=== PATIENT | male | born 1940 | race Caucasian/White ===

== ENCOUNTER → 2021-04-06 | Outpatient (CLI) | payer MEDICARE, OTHER ==
[~2021-04-06] MED LIST: ATEN50; CARV25 PO; HYDACE5325 PO; LEVSOD175; METF500 PO; OXYACE5T PO; PROM25 PO; SUMA25; TAMS.4ER
[2021-04-06 15:16] LABS: Appearance, Urine Clear (Clear); Bilirubin, Urine Neg (Neg); Blood, Urine 3+ (Neg); Color, Urine Yellow (P-Yellow); Glucose Qualitative, Urine 4+ (Neg); Ketones, Urine Neg (Neg); Leukocyte Esterase, Urine Neg (Neg); Nitrite, Urine Neg (Neg); Protein, Urine Neg (Neg); Urobilinogen, Urine NORM (Normal)
[2021-04-06 15:33] LABS: White Blood Cells, Urine 0-2 /hpf (0-5)
[2021-04-06 15:34] LABS: Bacteria Few /hpf; Squamous Epithelial Cells Rare /hpf (Few)
== END | disposition home or self-care (01) ==
LOC: LAB SHORT 14:27 → LAB 14:27
PROVIDERS: Radiology Therapeutic Radiology
DX: Z51.0 Encounter for antineoplastic radiation therapy (principal); C61 Malignant neoplasm of prostate
CPT/HCPCS: 81001

== ENCOUNTER 2021-12-24 13:25 | Emergency (ER) | payer MEDICARE, OTHER ==
[~2021-12-24] VITALS: Ht 162.6 cm; Wt 60.8 kg
[2021-12-24] MEDS ORDERED: EUTHYROX100 MC1 PO (14:00)
[2021-12-24] MEDS ORDERED: HYDR1TAB94 PO (15:38)
[2021-12-24] MEDS ORDERED: CEPH500 PO (15:38)
== END 2021-12-24 15:40 | disposition home or self-care (01) ==
LOC: ER 13:25
DX: S62.630B Displaced fracture of distal phalanx of right index finger, initial encounter for open fracture (principal); S60.412A Abrasion of right middle finger, initial encounter; S60.414A Abrasion of right ring finger, initial encounter; W31.1XXA Contact with metalworking machines, initial encounter; Y92.9 Unspecified place or not applicable; Z87.891 Personal history of nicotine dependence; Z88.5 Allergy status to narcotic agent; Z79.899 Other long term (current) drug therapy
CPT/HCPCS: 73140; A9270

== ENCOUNTER 2022-04-02 13:02 | Day surgery (SDC) | payer MEDICARE, OTHER ==
[~2022-04-02] VITALS: Ht 165.1 cm; Wt 65.1 kg
[~2022-04-02 13:02] MED LIST changes: +CEPH500 PO; +EUTHYROX100 MC1 PO; +HYDR1TAB94 PO
[2022-04-02] MEDS ORDERED: METF500 (13:15)
[2022-04-02] MEDS ORDERED: NAPR220 (13:15)
== END 2022-04-02 15:00 | disposition home or self-care (01) ==
LOC: ORSCSDS 13:02
PROVIDERS: Anesthesiology
PROC: 3E0R33Z Introduction of Anti-inflammatory into Spinal Canal, Percutaneous Approach (ICD-10-PCS; principal; 2022-04-02 15:00)
DX: M51.16 Intervertebral disc disorders with radiculopathy, lumbar region (principal); M54.50 Low back pain, unspecified; I10 Essential (primary) hypertension; E03.9 Hypothyroidism, unspecified; Z85.46 Personal history of malignant neoplasm of prostate; Z79.899 Other long term (current) drug therapy
CPT/HCPCS: 82947; J1040

== ENCOUNTER 2022-04-24 08:58 | Day surgery (SDC) | payer MEDICARE, OTHER ==
[~2022-04-24] VITALS: Ht 165.1 cm; Wt 65.4 kg
[~2022-04-24 08:58] MED LIST changes: +METF500; +NAPR220
--- NOTE | 2022-04-24 10:07 | NUR ---
04/24/22 Shirley Benz CALL LIGHT WITHIN REACH.
== END 2022-04-24 11:10 | disposition home or self-care (01) ==
LOC: ORSCSDS 08:58
PROVIDERS: Anesthesiology
PROC: 3E0R33Z Introduction of Anti-inflammatory into Spinal Canal, Percutaneous Approach (ICD-10-PCS; principal; 2022-04-24 10:00)
DX: M51.16 Intervertebral disc disorders with radiculopathy, lumbar region (principal); I10 Essential (primary) hypertension; E03.9 Hypothyroidism, unspecified; Z85.46 Personal history of malignant neoplasm of prostate; Z79.899 Other long term (current) drug therapy
CPT/HCPCS: 82947; J1040

== ENCOUNTER 2022-08-09 09:48 | Day surgery (SDC) | payer MEDICARE, OTHER ==
[~2022-08-09] VITALS: Ht 165.1 cm; Wt 66.0 kg
[2022-08-09] MEDS ORDERED: AIMOVIG AU140 MG/1 M (10:41)
[2022-08-09] MEDS ORDERED: CARV3.125 (10:41)
[2022-08-09] MEDS ORDERED: COSOPT PF EYE1 EACH (10:42)
[2022-08-09] MEDS ORDERED: IBUP100S (10:42)
[2022-08-09] MEDS ORDERED: XALATAN2.5 ML (10:42)
[2022-08-09] MEDS ORDERED: TRELSTAR (10:43)
[2022-08-09] MEDS ORDERED: EUTHYROX88 MCG (10:43)
[2022-08-09] MEDS ORDERED: METF500 (10:43)
== END 2022-08-09 11:37 | disposition home or self-care (01) ==
LOC: ORSCSDS 09:48
PROVIDERS: Anesthesiology
PROC: 3E0R3BZ Introduction of Anesthetic Agent into Spinal Canal, Percutaneous Approach (ICD-10-PCS; principal; 2022-08-09 10:45)
PROC: 3E0R33Z Introduction of Anti-inflammatory into Spinal Canal, Percutaneous Approach (ICD-10-PCS; principal; 2022-08-09 10:45)
DX: M51.16 Intervertebral disc disorders with radiculopathy, lumbar region (principal); E11.9 Type 2 diabetes mellitus without complications; I10 Essential (primary) hypertension; Z79.899 Other long term (current) drug therapy; Z85.46 Personal history of malignant neoplasm of prostate
CPT/HCPCS: 82947; J1040; J2001

== ENCOUNTER 2023-03-27 19:38 | Emergency (ER) | payer MEDICARE, OTHER ==
[~2023-03-27] VITALS: Ht 167.6 cm; Wt 63.5 kg
[~2023-03-27 19:38] MED LIST changes: +AIMOVIG AU140 MG/1 M; +CARV3.125; +COSOPT PF EYE1 EACH; +EUTHYROX88 MCG; +IBUP100S; +TRELSTAR; +XALATAN2.5 ML
[2023-03-27 20:15] LABS: BASOPHILS ABSOLUTE AUTO 0.05 K/mm3 (0.00-0.23); BASOPHILS PERCENT AUTO 0 % (0-2); EOSINOPHILS ABSOLUTE AUTO 0.12 K/mm3 (0.00-0.68); EOSINOPHILS PERCENT AUTO 1 % (0-6); Hematocrit 44.5 % (37.0-53.0); Hemoglobin 15.4 g/dL (13.5-17.5); IMMATURE GRAN ABSOLUTE AUTO 0.05 K/mm3 (0.00-0.10); IMMATURE GRAN PERCENT AUTO 0 % (0-1); LYMPHOCYTES ABSOLUTE AUTO 1.86 K/mm3 (0.84-5.20); LYMPHOCYTES PERCENT AUTO 14 % (21-46); MONOCYTES ABSOLUTE AUTO 0.86 K/mm3 (0.16-1.47); MONOCYTES PERCENT AUTO 7 % (4-13); Mean Corpuscular HGB 31.2 pg (26.0-34.0); Mean Corpuscular HGB Conc 34.6 g/dL (31.5-36.5); Mean Corpuscular Volume 90 fL (80-100); Mean Platelet Volume 10.8 fL (9.1-12.4); NEUTROPHILS ABSOLUTE AUTO 10.09 K/mm3 (1.96-9.15); NEUTROPHILS PERCENT AUTO 77 % (41-73); Platelet Count 249 K/mm3 (150-400); RDW Standard Deviation 46.6 fL (35.1-46.3); Red Blood Cell Count 4.93 M/mm3 (4.30-5.90); White Blood Cell Count 13.03 K/mm3 (4.00-11.30)
[2023-03-27 20:20] LABS: Source, Urine Clean Catch
[2023-03-27 20:32] LABS: Albumin, Blood 3.8 g/dL (3.4-5.0); Albumin/Globulin Ratio 1.2 (0.8-1.8); Bilirubin, Total 1.1 mg/dL (0.1-1.0); Bun/Creatinine Ratio 31.4 (12.0-20.0); Calcium, Blood 9.3 mg/dL (8.5-10.1); Creatinine, Blood 1.4 mg/dL (0.60-1.20); Globulin, Blood 3.2 g/dL (2.2-4.0); Potassium, Blood 5.7 mmol/L (3.5-5.5)
[2023-03-27 20:35] LABS: Appearance, Urine Clear (Clear); Bilirubin, Urine Neg (Neg); Blood, Urine Neg (Neg); Color, Urine Yellow (P-Yellow); Glucose Qualitative, Urine Neg (Neg); Ketones, Urine Neg (Neg); Leukocyte Esterase, Urine Neg (Neg); Nitrite, Urine Neg (Neg); Protein, Urine 1+ (Neg); Specific Gravity, Urine 1.015 (1.003-1.022); Urobilinogen, Urine NORM (Normal)
[2023-03-27 23:00] VITALS: BP 193/83
== END 2023-03-27 23:06 | disposition home or self-care (01) ==
LOC: ER 19:38
PROVIDERS: Student in an Organized Health Care Education/Training Program
DX: R41.3 Other amnesia (principal); E86.0 Dehydration; E03.9 Hypothyroidism, unspecified; I10 Essential (primary) hypertension; Z88.5 Allergy status to narcotic agent; Z88.8 Allergy status to other drugs, medicaments and biological substances; Z79.890 Hormone replacement therapy; Z79.899 Other long term (current) drug therapy; Z79.84 Long term (current) use of oral hypoglycemic drugs; Z87.891 Personal history of nicotine dependence
CPT/HCPCS: 70450; 80053; 85025; 93005; 93010; 99285-25; J7030

== ENCOUNTER → 2024-12-22 | Outpatient (CLI) | payer MEDICARE, OTHER | LOC: LAB SHORT 10:10 → LAB 10:10 | DX: L08.9 Local infection of the skin and subcutaneous tissue, unspecified (principal); L57.8 Other skin changes due to chronic exposure to nonionizing radiation; Z48.02 Encounter for removal of sutures; Z71.89 Other specified counseling | CPT/HCPCS: 87070; 87077; 87147; 87186; 87205 ==

== ENCOUNTER 2025-06-08 10:59 | Emergency (ER) | payer MEDICARE, OTHER ==
[~2025-06-08] VITALS: Ht 165.1 cm; Wt 59.9 kg
[2025-06-08] MEDS ORDERED: VENL75ER (11:14)
[2025-06-08] MEDS ORDERED: DUTA.5 (11:15)
[2025-06-08] MEDS ORDERED: DOXY100 (11:15)
[2025-06-08 11:27] LABS: BASOPHILS ABSOLUTE AUTO 0.07 K/mm3 (0.00-0.23); BASOPHILS PERCENT AUTO 1 % (0-2); EOSINOPHILS ABSOLUTE AUTO 0.06 K/mm3 (0.00-0.68); EOSINOPHILS PERCENT AUTO 1 % (0-6); Hematocrit 44.6 % (37.0-53.0); Hemoglobin 15.4 g/dL (13.5-17.5); IMMATURE GRAN ABSOLUTE AUTO 0.05 K/mm3 (0.00-0.10); IMMATURE GRAN PERCENT AUTO 1 % (0-1); LYMPHOCYTES ABSOLUTE AUTO 1.85 K/mm3 (0.84-5.20); LYMPHOCYTES PERCENT AUTO 19 % (21-46); MONOCYTES ABSOLUTE AUTO 1.03 K/mm3 (0.16-1.47); MONOCYTES PERCENT AUTO 11 % (4-13); Mean Corpuscular HGB Conc 34.5 g/dL (31.5-36.5); Mean Corpuscular Volume 90 fL (80-100); NEUTROPHILS ABSOLUTE AUTO 6.62 K/mm3 (1.96-9.15); NEUTROPHILS PERCENT AUTO 69 % (41-73); NRBC ABSOLUTE 0.00 K/mm3 (0.00-0.02); NRBC Auto 0.0 /100 WBC (0.0-0.2); Platelet Count 247 K/mm3 (150-400); RDW Coefficient Variation 13.9 % (11.7-14.2); RDW Standard Deviation 46.2 fL (35.1-46.3)
[2025-06-08 11:45] LABS: Alanine Aminotransfer (ALT/SGP 42.0 U/L (12-78); Albumin, Blood 4.0 g/dL (3.4-5.0); Albumin/Globulin Ratio 1.3 (0.8-1.8); Anion Gap 8.0 mmol/L (3-11); Aspartate Aminotrans (AST/SGOT 32.0 U/L (12-37); Bilirubin, Total 0.8 mg/dL (0.1-1.0); Blood Urea Nitrogen 43.0 mg/dL (8-24); CO2, Blood 26.0 mmol/L (21-32); Calcium, Blood 9.1 mg/dL (8.5-10.1); Chloride, Blood 107.0 mmol/L (98-108); Creatinine, Blood 1.34 mg/dL (0.60-1.20); Globulin, Blood 3.1 g/dL (2.2-4.0); Glucose, Blood 107.0 mg/dL (70-99); Potassium, Blood 4.3 mmol/L (3.5-5.5); Sodium, Blood 137.0 mmol/L (136-145); Total Protein, Blood 7.1 g/dL (6.4-8.2)
[2025-06-08 14:11] LABS: Source, Urine Clean Catch
[2025-06-08 14:17] LABS: Bilirubin, Urine Neg (Neg); Color, Urine Yellow (P-Yellow); Glucose Qualitative, Urine Neg (Neg); Ketones, Urine Neg (Neg); Leukocyte Esterase, Urine Neg (Neg); Protein, Urine 1+ (Neg); Specific Gravity, Urine 1.025 (1.003-1.022); Urobilinogen, Urine NORM (Normal)
[2025-06-08 14:45] VITALS: BP 163/100
== END 2025-06-08 15:00 | disposition home or self-care (01) ==
LOC: ER 10:59
PROVIDERS: Student in an Organized Health Care Education/Training Program
DX: R41.0 Disorientation, unspecified (principal); Z87.891 Personal history of nicotine dependence; Z79.890 Hormone replacement therapy; Z79.899 Other long term (current) drug therapy
CPT/HCPCS: 70450; 80053; 85025; 93005; 93010; 99285-25

== ENCOUNTER 2025-06-22 09:43 | Day surgery (SDC) | payer MEDICARE, OTHER ==
[~2025-06-22] VITALS: Ht 165.1 cm; Wt 57.6 kg
[~2025-06-22 09:43] MED LIST changes: +Balanced Salt Epinephrine Irrigation Solution 500 mL IR SCH; +DOXY100; +DUTA.5; +Moxifloxacin HCL 0.5 MG/0.1 ML 0.4MLSYR RIGHTEYE SCH; +Ondansetron 4 MG SoluTab MM PRN; +PHENYLEPHRINE\\TROPICAMIDE\\TETRACAINE OPHTHALMIC DILATING SOLN RIGHTEYE PRN; +Povidone-Iodine 450 DROP/30 ML Solution ONE; +Povidone-Iodine 450 DROP/30 ML Solution RIGHTEYE SCH; +Tetracaine HCl/Pf 0.5% Opth Soln 4 ml ONE; +VENL75ER; +diazePAM 5 MG,diazePAM 2 MG PO SCH
--- NOTE | 2025-06-22 10:08 | NUR ---
06/22/25 1008 Lou Dawson 1002: 7 MG PO VALIUM PER ORDERS. INITIAL ANXIETY 09/21 PER PATIENT REPORT. 1004: TETRACAINE PER ORDERS 1005: PLEGET PER ORDERS
[2025-06-22] MEDS ORDERED: CARVEDILOL25 M9 PO (10:12)
[2025-06-22] MEDS ORDERED: DUTASTERIDE0.5 M3 PO (10:14)
[2025-06-22] MEDS ORDERED: SYNTHROID125 MC1 PO (10:15)
[2025-06-22] MEDS ORDERED: HYDROCODONE-AC1 EAC7 (10:16)
[2025-06-22] MEDS ORDERED: ESCI10 (10:17)
--- NOTE | 2025-06-22 10:39 | NUR ---
06/22/25 1039 Jaja Noel VITALS AT 1039 BP: 155/88 P: 61 O2: 100% WITH 10 LITERS OF BLOW BY OXYGEN
[2025-06-22 11:07] VITALS: BP 180/94
== END 2025-06-22 11:21 | disposition home or self-care (01) ==
LOC: ORSCSDS 09:43
PROVIDERS: Student in an Organized Health Care Education/Training Program
PROC: 08RJ3JZ Replacement of Right Lens with Synthetic Substitute, Percutaneous Approach (ICD-10-PCS; principal; 2025-06-22 11:00)
DX: E11.36 Type 2 diabetes mellitus with diabetic cataract (principal); H21.81 Floppy iris syndrome; H25.813 Combined forms of age-related cataract, bilateral; H40.1133 Primary open-angle glaucoma, bilateral, severe stage; I10 Essential (primary) hypertension; Z85.46 Personal history of malignant neoplasm of prostate; Z86.73 Personal history of transient ischemic attack (TIA), and cerebral infarction without residual deficits; Z79.899 Other long term (current) drug therapy
CPT/HCPCS: A9270; V2632

== ENCOUNTER 2025-06-30 08:05 | Day surgery (SDC) | payer MEDICARE, OTHER ==
[~2025-06-30] VITALS: Ht 165.1 cm; Wt 57.9 kg
[~2025-06-30 08:05] MED LIST changes: +CARVEDILOL25 M9 PO; +DUTASTERIDE0.5 M3 PO; +ESCI10; +HYDROCODONE-AC1 EAC7; +Moxifloxacin HCL 0.5 MG/0.1 ML 0.4MLSYR LEFTEYE SCH; -Moxifloxacin HCL 0.5 MG/0.1 ML 0.4MLSYR RIGHTEYE SCH; +PHENYLEPHRINE\\TROPICAMIDE\\TETRACAINE OPHTHALMIC DILATING SOLN LEFTEYE PRN; -PHENYLEPHRINE\\TROPICAMIDE\\TETRACAINE OPHTHALMIC DILATING SOLN RIGHTEYE PRN; +Povidone-Iodine 450 DROP/30 ML Solution LEFTEYE SCH; -Povidone-Iodine 450 DROP/30 ML Solution RIGHTEYE SCH; +SYNTHROID125 MC1 PO; -diazePAM 5 MG,diazePAM 2 MG PO SCH
--- NOTE | 2025-06-30 08:40 | NUR ---
06/30/25 0840 Danae Ambriz PT REPORTS ANXIETY LEVEL WA 08/21 PRIOR TO ADMINISTRATION OF VALIUM 10MG PO @ 0827. TETRACAINE IN AT 0829. PLEDGETT IN AT 0830. CALL LIGHT IN PT'S HANDS. PT GIVEN 10MG VALIUM PER ORDERS FROM DR ARELLANO IN CHART.
--- NOTE | 2025-06-30 09:03 | NUR ---
06/30/25 0903 Chasity Andrews 0901 BP:166/91 HR:59 O2:99% RESP:16
[2025-06-30 09:22] VITALS: BP 155/84
== END 2025-06-30 09:43 | disposition home or self-care (01) ==
LOC: ORSCSDS 08:05
PROVIDERS: Student in an Organized Health Care Education/Training Program
PROC: 08RK3JZ Replacement of Left Lens with Synthetic Substitute, Percutaneous Approach (ICD-10-PCS; principal; 2025-06-30 09:30)
DX: E11.36 Type 2 diabetes mellitus with diabetic cataract (principal); H25.812 Combined forms of age-related cataract, left eye; H21.81 Floppy iris syndrome; Z96.1 Presence of intraocular lens; H40.1233 Low-tension glaucoma, bilateral, severe stage; H50.00 Unspecified esotropia; I10 Essential (primary) hypertension; Z85.46 Personal history of malignant neoplasm of prostate; Z86.73 Personal history of transient ischemic attack (TIA), and cerebral infarction without residual deficits; Z79.899 Other long term (current) drug therapy
CPT/HCPCS: A9270; V2632